=== PATIENT | female | born 1950 | race Caucasian/White ===

== ENCOUNTER 2017-07-24 06:50 | Emergency (ER) | payer MEDICARE ==
[2017-07-24] MEDS ORDERED: ONDANSETRON ODT 4 MG PO ONE (07:30)
[2017-07-24] MEDS ORDERED: MORPHINE SULFATE 4 MG/ML, 1ML IVPush PRN (07:30)
[2017-07-24] MEDS ORDERED: SODIUM CHLORIDE FLUSH 10ML SYR IVF ONE (07:30)
[2017-07-24] MEDS ORDERED: ASPIRIN 81 MG TABLET CHEW PO ONE (07:30)
[2017-07-24] MEDS ORDERED: MORPHINE SULFATE 4 MG/ML, 1ML ONE (07:38)
[2017-07-24] MEDS ORDERED: ONDANSETRON ODT 4 MG ONE (07:38)
[2017-07-24] MEDS ORDERED: ASPIRIN 81 MG TABLET CHEW ONE (07:38)
[2017-07-24 07:47] LABS: ALBUMIN 4.5 g/dL (3.4-5.0); ANION GAP 11 mmol/L (5-15); CALCIUM 9.1 mg/dL (8.5-10.1); CHLORIDE 108 mmol/L (98-107); CREATININE 0.77 mg/dL (0.55-1.02)
[2017-07-24 07:51] LABS: TROPONIN I < 0.015 ng/mL (0.000-0.045)
[2017-07-24 08:02] LABS: BASOPHILS # (AUTO) 0.04 x10^3/uL (0-0.1); BASOPHILS % (AUTO) 1 % (0-1); EOSINOPHILS # (AUTO) 0.08 x10^3/uL (0-0.4); EOSINOPHILS % (AUTO) 2 % (1-7); LYMPHOCYTES % (AUTO) 39 % (22-44); MD NO; MEAN CORPUSCULAR HEMOGLOBIN 30.8 pg (27.0-34.8); MEAN CORPUSCULAR HGB CONC 34.1 g/dL (32.4-35.8); MEAN CORPUSCULAR VOLUME 90.2 fL (80-100); MEAN PLATELET VOLUME 7.8 fL (7.4-10.4); MONOCYTES # (AUTO) 0.51 x10^3/uL (0.2-0.8); MONOCYTES % (AUTO) 9 % (2-9); NEUTROPHILS # (AUTO) 2.82 x10^3/uL (1.8-6.8); NEUTROPHILS % (AUTO) 50 % (42-75); PLATELET COUNT 311 x10^3/uL (130-400); RED BLOOD COUNT 4.69 x10^6/uL (3.82-5.3); RED CELL DISTRIBUTION WIDTH 12.8 % (9.6-15.2)
[2017-07-24] MEDS ORDERED: MAALOX/HYOSCYAMINE/LIDOCAINE 45 ML BTL PO ONE (09:00)
[2017-07-24] MEDS ORDERED: MAALOX/HYOSCYAMINE/LIDOCAINE 45 ML BTL ONE (09:01)
[2017-07-24] MEDS ORDERED: OMNIPAQUE 350 MG/ML, 100ML BOTTLE ONE (09:26)
[2017-07-24 11:50] VITALS: BP 135/82
== END 2017-07-24 11:55 | disposition home or self-care (01) ==
LOC: ED 09:20
DX: R10.13 Epigastric pain (principal)
CPT/HCPCS: 36415; 71045; 74177; 80048; 82040; 83880; 84484; 85025; 93005; 93306; 96374; 99285; Q0162; Q9967

== ENCOUNTER → 2017-10-10 | Outpatient (CLI) | payer MEDICARE | END | disposition home or self-care (01) | LOC: RAD 13:49 | PROVIDERS: ATTEND Family Medicine | DX: S09.90XA Unspecified injury of head, initial encounter (principal); G31.89 Other specified degenerative diseases of nervous system; X58.XXXA Exposure to other specified factors, initial encounter; Y93.89 Activity, other specified; Y92.89 Other specified places as the place of occurrence of the external cause; Y99.8 Other external cause status | CPT/HCPCS: 70450 ==

== ENCOUNTER 2018-03-19 08:16 | Inpatient (IN) | payer MEDICARE ==
[~2018-03-19] VITALS: Ht 160 cm; Wt 86.6 kg
--- NOTE | 2018-03-19 08:38 | NUR ---
Intermittent SOB, orthopnea & intra scapular pain x 1wk. Saw PMD for same c/o last wk & felt worse yesterday so decided to come to ER. No CP, feels difficult to take deep breath. EKG done at time of arrival, placed on cardiac, NIbp & SPO2 monitor. Took 3 asa 325mg TAR MAN. Sig other @ BS, has been seen & eval. by ER ODALYS Reilly. Updated & aware of upcoming POC.
[2018-03-19] MEDS ORDERED: CHOL500045 PO (08:49)
[2018-03-19] MEDS ORDERED: DICY20TA3 PO (08:49)
[2018-03-19] MEDS ORDERED: [UNRECOGNIZED DRUG - OTHER] SL (08:49)
[2018-03-19] MEDS ORDERED: DEXL60CA2 PO (08:49)
[2018-03-19] MEDS ORDERED: SUCR1TAB PO (08:49)
[2018-03-19] MEDS ORDERED: B6 PO (08:49)
[2018-03-19] MEDS ORDERED: AMLO10TA8 PO (08:49)
[2018-03-19] MEDS ORDERED: ROSU5TAB PO (08:49)
[2018-03-19] MEDS ORDERED: CALC-316 PO (08:49)
[2018-03-19] MEDS ORDERED: COCO1000 PO (08:49)
[2018-03-19] MEDS ORDERED: GARL600T PO (08:49)
[2018-03-19 08:58] LABS: BASOPHILS # (AUTO) 0.02 x10^3/uL (0-0.1); BASOPHILS % (AUTO) 0 % (0-1); EOSINOPHILS % (AUTO) 2 % (1-7); LYMPHOCYTES # (AUTO) 1.99 x10^3/uL (1-3.4); LYMPHOCYTES % (AUTO) 32 % (22-44); MD NO; MEAN CORPUSCULAR HEMOGLOBIN 30.3 pg (27.0-34.8); MEAN CORPUSCULAR HGB CONC 33.1 g/dL (32.4-35.8); MEAN CORPUSCULAR VOLUME 91.6 fL (80-100); MEAN PLATELET VOLUME 6.9 fL (7.4-10.4); MONOCYTES # (AUTO) 0.42 x10^3/uL (0.2-0.8); MONOCYTES % (AUTO) 7 % (2-9); NEUTROPHILS # (AUTO) 3.62 x10^3/uL (1.8-6.8); NEUTROPHILS % (AUTO) 59 % (42-75); PLATELET COUNT 362 x10^3/uL (130-400); RED BLOOD COUNT 4.66 x10^6/uL (3.82-5.3); RED CELL DISTRIBUTION WIDTH 12.9 % (9.6-15.2)
[2018-03-19] MEDS ORDERED: ASPIRIN 81 MG TABLET CHEW PO ONE (09:00)
[2018-03-19] MEDS ORDERED: SODIUM CHLORIDE FLUSH 10ML SYR IVF ONE (09:00)
[2018-03-19] MEDS ORDERED: NITROGLYCERIN SINGLE TAB 0.4 MG SL PRN (09:00)
[2018-03-19 09:06] LABS: ALANINE AMINOTRANSFERASE 20 U/L (12-78); ALBUMIN 4.1 g/dL (3.4-5.0); ANION GAP 7 mmol/L (5-15); CALCIUM 9.6 mg/dL (8.5-10.1); CHLORIDE 110 mmol/L (98-107); CREATININE 0.78 mg/dL (0.55-1.02)
[2018-03-19 09:11] LABS: ALKALINE PHOSPHATASE 149 U/L (45-117); BILIRUBIN,TOTAL 0.2 mg/dL (0.2-1.0); TOTAL PROTEIN 7.5 g/dL (6.4-8.2); TROPONIN I < 0.015 ng/mL (0.000-0.045)
--- NOTE | 2018-03-19 09:38 | NUR ---
Patient is resting comfortably in bed. Mild SOB, denies CP. Vital Signs within normal limits. TBADM. Pt aware of POC.
[2018-03-19 09:44] LABS: FREE T4 (FREE THYROXINE) 1.1 ng/dL (0.76-1.46); THYROID STIMULATING HORMONE 0.751 mIU/L (0.358-3.740)
--- NOTE | 2018-03-19 10:27 | NUR ---
Delay in tele bed assignment due to lack of beds. Pt updated about delay, meal tray ordered.
--- NOTE | 2018-03-19 11:08 | NUR ---
Meal tray 100% eaten, pt resting comfortably, VSS.
--- NOTE | 2018-03-19 12:08 | NUR ---
Still waiting on tele bed. Dr. Dias @ BS.
[2018-03-19] MEDS ORDERED: DICYCLOMINE 20 MG TABLET PO PRN (12:30)
[2018-03-19] MEDS ORDERED: OMEPRAZOLE 20 MG CAPSULE.DR PO PRN (12:30)
[2018-03-19] MEDS ORDERED: hydrALAzine 20 MG/ML, 1ML IVPush PRN (12:30)
--- NOTE | 2018-03-19 12:46 | NUR ---
TASK RN: PT SITTING UP IN GURNEY, AWAKE/ALERT. NAD NOTED. PT UPDATED TO POC (AWAITING BED ASSIGNMENT FOR TRANSFER) AND DEMONSTRATES UNDERSTANDING. PT DENIES NEEDS OR NEED FOR PAIN MEDICATIONS.
--- NOTE | 2018-03-19 12:51 | NUR ---
TASK RN: REPORT TO RENE MARK ON FLOOR. PT PREPARED FOR TRANSPORT
[2018-03-19 13:09] VITALS: BP 124/80
[2018-03-19 15:39] LABS: TROPONIN I < 0.015 ng/mL (0.000-0.045)
[2018-03-19] MEDS ORDERED: APAP/CODEINE 300/30MG TABLET PO PRN (16:30)
[2018-03-19 17:10] VITALS: BP 104/69
[2018-03-19 17:11] VITALS: BP 113/65
[2018-03-19 17:12] VITALS: BP 129/74
[2018-03-19] MEDS: CALCIUM/VITAMIN D3 250-125 TABLET PO SCH (17:18)
[2018-03-19] MEDS: ENOXAPARIN 40 MG/0.4 ML SQ SCH (17:18)
[2018-03-19] MEDS: METOPROLOL TARTRATE 25 MG TABLET PO SCH (17:19)
[2018-03-19 20:00] VITALS: BP 118/70
[2018-03-19] MEDS: OMEPRAZOLE 20 MG CAPSULE.DR PO SCH (20:33)
[2018-03-19] MEDS: ATORVASTATIN 10 MG TABLET PO SCH (20:34)
[2018-03-19 23:11] LABS: TROPONIN I < 0.015 ng/mL (0.000-0.045)
[2018-03-19] MEDS: ACETAMINOPHEN 325 MG TABLET PO PRN (23:28)
[2018-03-20 01:54] VITALS: BP 122/72
[2018-03-20] MEDS: ASPIRIN 81 MG TABLET EC PO SCH (06:08)
[2018-03-20] MEDS: OMEPRAZOLE 20 MG CAPSULE.DR PO SCH ×2 (06:09→20:40)
[2018-03-20 07:09] LABS: CHLORIDE 109 mmol/L (98-107)
[2018-03-20 07:24] LABS: ALANINE AMINOTRANSFERASE 21 U/L (12-78); ALKALINE PHOSPHATASE 145 U/L (45-117); ANION GAP 10 mmol/L (5-15); BILIRUBIN,TOTAL 0.4 mg/dL (0.2-1.0); CALCIUM 9.9 mg/dL (8.5-10.1); CHOL/HDL RATIO 2.6; CHOLESTEROL, TOTAL 176 mg/dL (140-239); CREATININE 0.79 mg/dL (0.55-1.02); HDL CHOL % 39 % (28-40); HDL CHOLESTEROL (DIRECT) 69 mg/dL (40-60); LDL CHOLESTEROL,CALCULATED 64 mg/dL (54-169); LDL/HDL RATIO 0.9 (0.5-3.0); TOTAL PROTEIN 7.4 g/dL (6.4-8.2); TRIGLYCERIDES 215 mg/dL (50-200); VLDL CHOLESTEROL 43 mg/dL (0-25)
[2018-03-20 07:28] VITALS: BP 136/77
[2018-03-20] MEDS: METOPROLOL TARTRATE 25 MG TABLET PO SCH ×2 (08:00→17:19)
[2018-03-20] MEDS: ONDANSETRON 2MG/ML, 2ML IVPush PRN (11:23)
[2018-03-20] MEDS: ACETAMINOPHEN 325 MG TABLET PO PRN (11:24)
[2018-03-20] MEDS: CALCIUM/VITAMIN D3 250-125 TABLET PO SCH (11:24)
[2018-03-20] MEDS: POTASSIUM CHLORIDE 20 MEQ TAB.ER.PRT PO SCH (11:24)
[2018-03-20] MEDS: CHOLECALCIFEROL 5,000u TAB PO SCH (11:24)
[2018-03-20 14:00] VITALS: BP 99/63
[2018-03-20 17:17] VITALS: BP 106/55
[2018-03-20] MEDS: ENOXAPARIN 40 MG/0.4 ML SQ SCH (17:19)
[2018-03-20] MEDS: FUROSEMIDE 20 MG/2 ML IV SCH (17:19)
[2018-03-20 18:50] VITALS: BP 128/77
[2018-03-20] MEDS: ATORVASTATIN 10 MG TABLET PO SCH (20:40)
[2018-03-21 00:45] VITALS: BP 96/55
[2018-03-21 05:39] LABS: ANION GAP 7 mmol/L (5-15); CALCIUM 9.3 mg/dL (8.5-10.1); CHLORIDE 107 mmol/L (98-107)
[2018-03-21 05:42] LABS: CREATININE 0.86 mg/dL (0.55-1.02)
[2018-03-21 05:48] VITALS: BP 99/64
[2018-03-21] MEDS: ASPIRIN 81 MG TABLET EC PO SCH (05:50)
[2018-03-21] MEDS: METOPROLOL TARTRATE 25 MG TABLET PO SCH (05:50)
[2018-03-21] MEDS: OMEPRAZOLE 20 MG CAPSULE.DR PO SCH (05:50)
[2018-03-21 07:35] VITALS: BP 115/61
[2018-03-21] MEDS: POTASSIUM CHLORIDE 20 MEQ TAB.ER.PRT PO SCH (07:37)
[2018-03-21] MEDS: CALCIUM/VITAMIN D3 250-125 TABLET PO SCH (07:38)
[2018-03-21] MEDS: CHOLECALCIFEROL 5,000u TAB PO SCH (07:38)
[2018-03-21] MEDS: FUROSEMIDE 20 MG/2 ML IV SCH (07:38)
[2018-03-21] MEDS ORDERED: REGADENOSON 0.4 MG/5 ML SYRINGE ONE (07:41)
[2018-03-21] MEDS: ACETAMINOPHEN 325 MG TABLET PO PRN (11:15)
[2018-03-21] MEDS: ONDANSETRON 2MG/ML, 2ML IVPush PRN (11:15)
[2018-03-21 14:10] VITALS: BP 118/76
[2018-03-21] MEDS ORDERED: FURO40TA6 PO (15:18)
[2018-03-21] MEDS ORDERED: POTA20TA14 PO (15:18)
[2018-03-21] MEDS ORDERED: OMEP-110 PO (15:18)
[2018-03-21] MEDS ORDERED: METO25TA35 PO (15:18)
[2018-03-21] MEDS ORDERED: ASPI81TA45 PO (15:18)
== END 2018-03-21 16:25 | disposition home or self-care (01) | DRG 291 ==
LOC: ED 09:27 → EDIP 09:28 → ED 09:31 → 5SO 13:05 → DCLOUNGE 03-21 16:10
PROVIDERS: ADMIT Hospitalist; ATTEND Internal Medicine
DX: I11.0 Hypertensive heart disease with heart failure (principal); I50.31 Acute diastolic (congestive) heart failure; Z88.8 Allergy status to other drugs, medicaments and biological substances; E66.9 Obesity, unspecified; Z68.33 Body mass index [BMI] 33.0-33.9, adult; E78.00 Pure hypercholesterolemia, unspecified; E78.5 Hyperlipidemia, unspecified; I25.10 Atherosclerotic heart disease of native coronary artery without angina pectoris; K21.9 Gastro-esophageal reflux disease without esophagitis; Z90.49 Acquired absence of other specified parts of digestive tract; Z90.710 Acquired absence of both cervix and uterus; R07.89 Other chest pain
CPT/HCPCS: 36415; 71045; 78452; 80048; 80053; 80061; 82306; 83690; 83735; 83880; 84100; 84439; 84443; 84484; 85025; 85379; 93005; 93017; 93306; G0378; J1650; J2405; J2785; A9502; C9898; J1940

== ENCOUNTER 2018-12-16 10:12 | Emergency (ER) | payer MEDICARE ==
[~2018-12-16] VITALS: Ht 160 cm; Wt 72.0 kg
[~2018-12-16 10:12] MED LIST: AMLO10TA8 PO; ASPI81TA45 PO; B6 PO; CALC-316 PO; CHOL500045 PO; COCO1000 PO; DEXL60CA2 PO; DICY20TA3 PO; FURO40TA6 PO; GARL600T PO; METO25TA35 PO; OMEP-110 PO; POTA20TA14 PO; ROSU5TAB PO; SUCR1TAB PO; [UNRECOGNIZED DRUG - OTHER] SL
--- NOTE | 2018-12-16 10:29 | NUR ---
PT PRESENTED TO ED D/T "MY HEART RACING WOKE ME UP FROM SLEEP." PT ALSO HAS COMPLAINTS OF HYPERTENSION. PT STATED TOOK PRESCRIBED METOPROLOL 25MG THIS AM AND DID NOT GO DOWN. PTS CURRENT BP 163/76. Addendum: 12/16/18 at 1033 by YUSEF PT PRESENTED TO ED D/T "MY HEART RACING WOKE ME UP FROM SLEEP." PT ALSO HAS COMPLAINTS OF HYPERTENSION. PT STATED TOOK PRESCRIBED METOPROLOL 12.5MG THIS AM AND DID NOT GO DOWN. PTS CURRENT BP 163/76.
[2018-12-16] MEDS ORDERED: ATOR-2 PO (10:33)
[2018-12-16] MEDS ORDERED: METO25TA35 PO (10:33)
[2018-12-16] MEDS ORDERED: AZIT250T PO (10:34)
--- NOTE | 2018-12-16 10:36 | NUR ---
PT STATED TOOK A TOTAL OF 25MG OF METOPROLOL THIS AM. PRESCRIPTION STATES TO TAKE HALF A TAB (12.5MG) BID. RN NOTICED BRADYCARDIA [id number]. RN TO INFORM .
--- NOTE | 2018-12-16 10:39 | NUR ---
MD ABURTO INFORMED.
--- NOTE | 2018-12-16 11:11 | NUR ---
ERMD AT BEDSIDE EVALUATING PT.
--- NOTE | 2018-12-16 11:27 | NUR ---
PT NEEDING TO USE THE RESTROOM. RN UNHOOKED PT FROM MONITORING. PT AMBULATED TO RESTROOM WITH A STEADY GAIT.
--- NOTE | 2018-12-16 11:30 | NUR ---
TECH STUDENTS AT BEDSIDE OBTAINING AN EKG.
[2018-12-16 11:56] VITALS: BP 144/87
--- NOTE | 2018-12-16 11:56 | NUR ---
PT LYING ON GURNEY WATCHING TV. NO NEEDS AT THIS TIME. RN TO CONTINUE TO MONITOR.
[2018-12-16 12:06] LABS: BASOPHILS # (AUTO) 0.04 x10^3/uL (0-0.1); BASOPHILS % (AUTO) 1 % (0-1); EOSINOPHILS % (AUTO) 1 % (1-7); LYMPHOCYTES # (AUTO) 2.37 x10^3/uL (1-3.4); LYMPHOCYTES % (AUTO) 31 % (22-44); MD NO; MEAN CORPUSCULAR HEMOGLOBIN 32.1 pg (27.0-34.8); MEAN CORPUSCULAR HGB CONC 33.7 g/dL (32.4-35.8); MEAN CORPUSCULAR VOLUME 95.3 fL (80-100); MEAN PLATELET VOLUME 7.8 fL (7.4-10.4); MONOCYTES # (AUTO) 0.52 x10^3/uL (0.2-0.8); MONOCYTES % (AUTO) 7 % (2-9); NEUTROPHILS % (AUTO) 60 % (42-75); PLATELET COUNT 270 x10^3/uL (130-400); RED BLOOD COUNT 4.67 x10^6/uL (3.82-5.3); RED CELL DISTRIBUTION WIDTH 12.6 % (9.6-15.2)
[2018-12-16 12:13] LABS: ALANINE AMINOTRANSFERASE 28 U/L (12-78); ALBUMIN 4.4 g/dL (3.4-5.0); ANION GAP 6 mmol/L (5-15); CALCIUM 8.9 mg/dL (8.5-10.1); CHLORIDE 107 mmol/L (98-107); CREATININE 0.86 mg/dL (0.55-1.02)
--- NOTE | 2018-12-16 12:41 | NUR ---
PT AMBULATED TO RESTROOM WITH A STEADY GAIT. RN HOOKED PT BACK UP TO MONITORING.
[2018-12-16 12:53] LABS: ALKALINE PHOSPHATASE 142 U/L (45-117); BILIRUBIN,TOTAL 0.5 mg/dL (0.2-1.0); TOTAL PROTEIN 7.7 g/dL (6.4-8.2); TROPONIN I < 0.015 ng/mL (0.000-0.045)
--- NOTE | 2018-12-16 12:54 | NUR ---
REPORT TO RENE ZELAYA LUNCH RELIEF.
== END 2018-12-16 13:30 | disposition home or self-care (01) ==
LOC: ED 10:49
DX: R00.2 Palpitations (principal); I10 Essential (primary) hypertension; E78.00 Pure hypercholesterolemia, unspecified
CPT/HCPCS: 36415; 71045; 80053; 84484; 85025; 93005; 99284

== ENCOUNTER 2019-02-18 11:48 | Outpatient (CLI) | payer MEDICARE ==
[~2019-02-18 11:48] MED LIST changes: +ATOR-2 PO; +AZIT250T PO
== END 2019-02-18 23:59 | disposition home or self-care (01) ==
LOC: CFH 11:48
PROVIDERS: ATTEND Orthopaedic Surgery
DX: S42.251D Displaced fracture of greater tuberosity of right humerus, subsequent encounter for fracture with routine healing (principal); M19.011 Primary osteoarthritis, right shoulder; M62.511 Muscle wasting and atrophy, not elsewhere classified, right shoulder; M25.711 Osteophyte, right shoulder; X58.XXXD Exposure to other specified factors, subsequent encounter

== ENCOUNTER → 2019-03-18 | Outpatient (CLI) | payer MEDICARE | END | disposition home or self-care (01) | LOC: RAD 10:12 | PROVIDERS: ATTEND Family Medicine | DX: R05 Cough (principal); N95.8 Other specified menopausal and perimenopausal disorders; I51.7 Cardiomegaly | CPT/HCPCS: 71046 ==

== ENCOUNTER 2019-07-21 07:37 | Observation (INO) | payer MEDICARE ==
[~2019-07-21] VITALS: Ht 160 cm; Wt 72.6 kg
[2019-07-21] MEDS ORDERED: ONDANSETRON 2MG/ML, 2ML IVPush ONE (08:00)
[2019-07-21] MEDS ORDERED: SODIUM CHLORIDE FLUSH 10ML SYR IVF ONE (08:00)
[2019-07-21] MEDS ORDERED: ASPIRIN 81 MG TABLET CHEW PO ONE (08:00)
[2019-07-21] MEDS ORDERED: MORPHINE SULFATE 4 MG/ML, 1ML IVPush PRN (08:00)
[2019-07-21] MEDS ORDERED: MORPHINE SULFATE 4 MG/ML, 1ML ONE (08:01)
[2019-07-21] MEDS ORDERED: ONDANSETRON 2MG/ML, 2ML ONE (08:02)
[2019-07-21] MEDS ORDERED: ASPIRIN 81 MG TABLET CHEW ONE (08:02)
--- NOTE | 2019-07-21 08:24 | NUR ---
PT WITH C/O SOB AND GEN WEAKNESS, STATES SHE HAS A LOW HR SHE WAS TOLD BY HER PCP SHE NEEDED A PM PLACED. 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 PT WITH C/O CHEST TIGHTNESS ON AND OFF. PT TO BP, CONT PULSE OX, CARD MONITOR.
[2019-07-21 08:33] LABS: BASOPHILS # (AUTO) 0.03 x10^3/uL (0-0.1); BASOPHILS % (AUTO) 1 % (0-1); EOSINOPHILS # (AUTO) 0.09 x10^3/uL (0-0.4); EOSINOPHILS % (AUTO) 2 % (1-7); LYMPHOCYTES # (AUTO) 2.19 x10^3/uL (1-3.4); LYMPHOCYTES % (AUTO) 36 % (22-44); MD NO; MEAN CORPUSCULAR HEMOGLOBIN 31.3 pg (27.0-34.8); MEAN CORPUSCULAR HGB CONC 33.3 g/dL (32.4-35.8); MEAN CORPUSCULAR VOLUME 93.9 fL (80-100); MEAN PLATELET VOLUME 7.4 fL (7.4-10.4); MONOCYTES # (AUTO) 0.55 x10^3/uL (0.2-0.8); MONOCYTES % (AUTO) 9 % (2-9); NEUTROPHILS # (AUTO) 3.28 x10^3/uL (1.8-6.8); NEUTROPHILS % (AUTO) 53 % (42-75); PLATELET COUNT 277 x10^3/uL (130-400); RED BLOOD COUNT 4.44 x10^6/uL (3.82-5.3); RED CELL DISTRIBUTION WIDTH 14.5 % (9.6-15.2)
[2019-07-21 08:34] LABS: ALANINE AMINOTRANSFERASE 19 U/L (12-78); ALBUMIN 3.7 g/dL (3.4-5.0); ANION GAP 8 mmol/L (5-15); CALCIUM 8.7 mg/dL (8.5-10.1); CHLORIDE 110 mmol/L (98-107); CREATININE 0.85 mg/dL (0.55-1.02)
[2019-07-21 08:38] LABS: ALKALINE PHOSPHATASE 146 U/L (45-117); BILIRUBIN,TOTAL 0.4 mg/dL (0.2-1.0); TOTAL PROTEIN 7.1 g/dL (6.4-8.2); TROPONIN I < 0.015 ng/mL (0.000-0.045)
--- NOTE | 2019-07-21 08:56 | NUR ---
PT TO IMAGING AT THIS TIME
--- NOTE | 2019-07-21 10:09 | NUR ---
REPORT GIVEN TO NISREEN LÓPEZ
[2019-07-21] MEDS ORDERED: morphine SULFATE 10 MG/ML, 1ML IVPush PRN (11:00)
[2019-07-21] MEDS ORDERED: DOCUSATE 100 MG CAPSULE PO PRN (11:00)
[2019-07-21] MEDS ORDERED: ONDANSETRON ODT 4 MG PO PRN (11:00)
[2019-07-21] MEDS ORDERED: NITROGLYCERIN 0.4 MG BOTTLE (25 TABS) SL PRN (11:00)
[2019-07-21] MEDS ORDERED: POLYETHYLENE GLYCOL 17 GM PACKET PO PRN (11:00)
[2019-07-21] MEDS ORDERED: ONDANSETRON 2MG/ML, 2ML IVPush PRN (11:00)
[2019-07-21 11:31] VITALS: BP 161/78
[2019-07-21] MEDS: ACETAMINOPHEN 325 MG TABLET PO PRN (12:07)
[2019-07-21] MEDS: ENOXAPARIN 40 MG/0.4 ML SQ SCH (12:07)
[2019-07-21 12:10] LABS: MICROSCOPIC NOT IND
[2019-07-21] MEDS ORDERED: DIPH25CA61 PO (12:14)
[2019-07-21] MEDS: LISINOPRIL 20 MG TABLET PO SCH (12:51)
[2019-07-21 13:28] VITALS: BP 133/81
[2019-07-21] MEDS ORDERED: PROMETHAZINE 25 MG/ML, 1ML IM PRN ×2 (16:00→18:30)
[2019-07-21 20:00] VITALS: BP 155/77
[2019-07-21] MEDS ORDERED: ATORVASTATIN 40 MG TABLET PO SCH (21:00)
[2019-07-21] MEDS ORDERED: MELATONIN 5 MG TABLET PO ONE (21:30)
[2019-07-22] MEDS: ACETAMINOPHEN 325 MG TABLET PO PRN ×2 (03:01→13:08)
[2019-07-22 03:05] VITALS: BP 109/67
[2019-07-22 05:47] LABS: BASOPHILS # (AUTO) 0.03 x10^3/uL (0-0.1); BASOPHILS % (AUTO) 0 % (0-1); EOSINOPHILS # (AUTO) 0.06 x10^3/uL (0-0.4); EOSINOPHILS % (AUTO) 1 % (1-7); LYMPHOCYTES # (AUTO) 2.13 x10^3/uL (1-3.4); LYMPHOCYTES % (AUTO) 34 % (22-44); MD NO; MEAN CORPUSCULAR HEMOGLOBIN 31.3 pg (27.0-34.8); MEAN CORPUSCULAR HGB CONC 33.6 g/dL (32.4-35.8); MEAN CORPUSCULAR VOLUME 93.1 fL (80-100); MEAN PLATELET VOLUME 7.6 fL (7.4-10.4); MONOCYTES % (AUTO) 8 % (2-9); NEUTROPHILS # (AUTO) 3.62 x10^3/uL (1.8-6.8); NEUTROPHILS % (AUTO) 57 % (42-75); PLATELET COUNT 254 x10^3/uL (130-400); RED BLOOD COUNT 4.23 x10^6/uL (3.82-5.3); RED CELL DISTRIBUTION WIDTH 14.2 % (9.6-15.2)
[2019-07-22 05:51] LABS: ALBUMIN 3.5 g/dL (3.4-5.0); ANION GAP 9 mmol/L (5-15); CALCIUM 8.9 mg/dL (8.5-10.1); CHLORIDE 107 mmol/L (98-107)
[2019-07-22 05:56] LABS: ALANINE AMINOTRANSFERASE 19 U/L (12-78); ALKALINE PHOSPHATASE 129 U/L (45-117); BILIRUBIN,TOTAL 0.7 mg/dL (0.2-1.0); CHOL/HDL RATIO 2.6; CHOLESTEROL, TOTAL 168 mg/dL (140-239); CREATININE 0.74 mg/dL (0.55-1.02); HDL CHOL % 39 % (28-40); HDL CHOLESTEROL (DIRECT) 65 mg/dL (40-60); LDL CHOLESTEROL,CALCULATED 57 mg/dL (54-169); LDL/HDL RATIO 0.9 (0.5-3.0); TOTAL PROTEIN 6.6 g/dL (6.4-8.2); TRIGLYCERIDES 229 mg/dL (50-200); TROPONIN I < 0.015 ng/mL (0.000-0.045); VLDL CHOLESTEROL 46 mg/dL (0-25)
[2019-07-22] MEDS ORDERED: ASPIRIN 81 MG TABLET EC PO SCH (06:00)
[2019-07-22 06:58] VITALS: BP 117/78
[2019-07-22] MEDS: LISINOPRIL 20 MG TABLET PO SCH (07:44)
[2019-07-22] MEDS ORDERED: REGADENOSON 0.4 MG/5 ML SYRINGE ONE (08:20)
[2019-07-22] MEDS: ENOXAPARIN 40 MG/0.4 ML SQ SCH (11:56)
[2019-07-22 12:34] VITALS: BP 118/81
[2019-07-22] MEDS ORDERED: OMNIPAQUE 350 MG/ML, 75ML BOTTLE ONE (15:43)
[2019-07-22] MEDS ORDERED: LISI-170 PO (16:12)
== END 2019-07-22 16:50 | disposition home or self-care (01) ==
LOC: ED 08:39 → EDIP 09:35 → INTOOBSV 09:35 → 5SO 10:48 → DCLOUNGE 07-22 16:44
PROVIDERS: ADMIT Family Medicine; ATTEND Family Medicine
DX: R00.1 Bradycardia, unspecified (principal); R07.2 Precordial pain; R07.89 Other chest pain; R06.00 Dyspnea, unspecified; R51 Headache; R32 Unspecified urinary incontinence; I11.0 Hypertensive heart disease with heart failure; I50.9 Heart failure, unspecified; E78.5 Hyperlipidemia, unspecified; K21.9 Gastro-esophageal reflux disease without esophagitis; F10.10 Alcohol abuse, uncomplicated; E66.9 Obesity, unspecified; I25.10 Atherosclerotic heart disease of native coronary artery without angina pectoris; E78.00 Pure hypercholesterolemia, unspecified; Z79.899 Other long term (current) drug therapy
CPT/HCPCS: 36415; 70450; 71045; 71275; 78452; 80053; 80061; 81003; 83036; 83880; 84443; 84484; 85025; 85379; 93005; 93017; 93306; 96372; 96374; 96375; 96376; 99285; A9502; G0378; J1650; J2270; J2405; J2550; J2785; Q9967

== ENCOUNTER 2020-02-03 07:32 | Outpatient (CLI) | payer MEDICARE ==
[~2020-02-03 07:32] MED LIST changes: +AMLO-211 PO; -AMLO10TA8 PO; +DIPH25CA61 PO; +LISI-170 PO
[2020-02-03 09:27] LABS: MEAN CORPUSCULAR HEMOGLOBIN 31.4 pg (27.0-34.8); MEAN CORPUSCULAR HGB CONC 34.3 g/dL (32.4-35.8); MEAN PLATELET VOLUME 7.8 fL (7.4-10.4); PLATELET COUNT 274 x10^3/uL (130-400); RED BLOOD COUNT 4.68 x10^6/uL (3.82-5.3); RED CELL DISTRIBUTION WIDTH 12.6 % (9.6-15.2)
[2020-02-03 09:34] LABS: ALANINE AMINOTRANSFERASE 27 U/L (12-78); ALBUMIN 4.3 g/dL (3.4-5.0); ANION GAP 8 mmol/L (5-15); CALCIUM 9.7 mg/dL (8.5-10.1); CHLORIDE 112 mmol/L (98-107)
[2020-02-03 09:36] LABS: ALKALINE PHOSPHATASE 155 U/L (45-117); BILIRUBIN,TOTAL 0.4 mg/dL (0.2-1.0); TOTAL PROTEIN 7.8 g/dL (6.4-8.2)
[2020-02-03 10:56] LABS: MD YES
[2020-02-03 11:08] LABS: BASOS#(MANUAL) 0.06 x10^3/uL (0-0.1); BASOS% (MANUAL) 1 % (0-1); LYMPH#(MANUAL) 3.17 x10^3/uL (1-3.4); LYMPHS% (MANUAL) 52 % (22-44); MONOS#(MANUAL) 0.37 x10^3/uL (0.3-2.7); MONOS% (MANUAL) 6 % (2-9); REACTIVE LYMPHS # (MANUAL) 0.12 x10^3/uL (0-0); REACTIVE LYMPHS % (MANUAL) 2 % (0-0); SEG#(MANUAL) 2.38 x10^3/uL (1.8-6.8); SEGS% (MANUAL) 39 % (42-75)
[2020-02-03 11:09] LABS: <PLATELET ESTIMATE> ADEQUATE; <PLT MORPHOLOGY> NORMAL PLT MORPH; <RBC MORPHOLOGY> NORMAL
== END 2020-02-03 23:59 | disposition home or self-care (01) ==
LOC: RAD 07:32
PROVIDERS: ATTEND Physician Assistant
DX: R06.02 Shortness of breath (principal); R10.13 Epigastric pain; R53.83 Other fatigue; R11.0 Nausea; Z90.49 Acquired absence of other specified parts of digestive tract
CPT/HCPCS: 36415; 71046; 76700; 80053; 83690; 85025

== ENCOUNTER 2020-02-03 07:36 | Outpatient (CLI) | payer MEDICARE | END 2020-02-03 23:59 | disposition home or self-care (01) | LOC: LAB 07:36 | PROVIDERS: ATTEND Family Medicine | DX: Z02.9 Encounter for administrative examinations, unspecified (principal) ==

== ENCOUNTER 2020-07-18 09:17 | Emergency (ER) | payer MEDICARE ==
[~2020-07-18] VITALS: Ht 160 cm; Wt 66.7 kg
[~2020-07-18 09:17] MED LIST changes: -DICY20TA3 PO; +DICY20TA4 PO
[2020-07-18] MEDS ORDERED: ONDANSETRON 2MG/ML, 2ML IVPush ONE (10:00)
[2020-07-18] MEDS ORDERED: SODIUM CHLORIDE 0.9% 1,000ML IVBOLUS ONE (10:00)
[2020-07-18] MEDS ORDERED: SODIUM CHLORIDE FLUSH 10ML SYR IVF ONE (10:00)
--- NOTE | 2020-07-18 10:08 | NUR ---
PT HAS CO NAUSEA/VOMITING AND MARKHAM X1 WEEK. ABDOMINAL PAIN FROM VOMITING. PT TO BED WITH ASSIST OF CANE. POSTIONED TO COMFORT. PT ATTACHED TO MONITORS. BARTOLOME. JENNI. DR. DELANEY EVALUATED
[2020-07-18 10:39] LABS: MICROSCOPIC NOT IND
[2020-07-18] MEDS ORDERED: ONDANSETRON 2MG/ML, 2ML ONE (10:43)
--- NOTE | 2020-07-18 10:47 | NUR ---
pt medicated per emar. vss. hayesn.
[2020-07-18 10:49] LABS: BASOPHILS % (AUTO) 0 % (0-1); EOSINOPHILS % (AUTO) 1 % (1-7); LYMPHOCYTES % (AUTO) 38 % (22-44); MEAN CORPUSCULAR HEMOGLOBIN 31.8 pg (27.0-34.8); MEAN CORPUSCULAR HGB CONC 35.6 g/dL (32.4-35.8); MEAN PLATELET VOLUME 7.2 fL (7.4-10.4); MONOCYTES % (AUTO) 10 % (2-9); NEUTROPHILS % (AUTO) 50 % (42-75); PLATELET COUNT 272 x10^3/uL (130-400); RED BLOOD COUNT 4.39 x10^6/uL (3.82-5.3); RED CELL DISTRIBUTION WIDTH 12.5 % (9.6-15.2)
[2020-07-18 10:50] LABS: ALBUMIN 3.9 g/dL (3.4-5.0); ANION GAP 9 mmol/L (5-15); CALCIUM 9.1 mg/dL (8.5-10.1); CHLORIDE 98 mmol/L (98-107); MD NO
[2020-07-18 10:53] LABS: ALANINE AMINOTRANSFERASE 25 U/L (12-78); ALKALINE PHOSPHATASE 160 U/L (45-117); BILIRUBIN,TOTAL 0.5 mg/dL (0.2-1.0); CREATININE 0.74 mg/dL (0.55-1.02); TOTAL PROTEIN 7.2 g/dL (6.4-8.2)
[2020-07-18 11:40] VITALS: BP 127/72
== END 2020-07-18 11:48 | disposition home or self-care (01) ==
LOC: ED 10:10
DX: R11.2 Nausea with vomiting, unspecified (principal); R51.9 Headache, unspecified; R10.9 Unspecified abdominal pain; E87.1 Hypo-osmolality and hyponatremia; I10 Essential (primary) hypertension; E78.00 Pure hypercholesterolemia, unspecified; Z88.5 Allergy status to narcotic agent
CPT/HCPCS: 36415; 80053; 81003; 85025; 96361; 96374; 99283; J2405; J7030

== ENCOUNTER 2020-08-30 10:12 | Emergency (ER) | payer MEDICARE ==
[~2020-08-30] VITALS: Ht 160 cm; Wt 67.6 kg
--- NOTE | 2020-08-30 10:39 | NUR ---
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
--- NOTE | 2020-08-30 10:50 | NUR ---
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
--- NOTE | 2020-08-30 10:57 | NUR ---
PT AMBULATORY TO ROOM 9 W/ C/O L HAND DEFORMITY AND PAIN AFTER PT TRIPPED AND FELL AND CAUGHT HERSELF ON HER L HAND. HAPPENED AT 0930 TODAY. PT STATES MILD PAIN 4/10 AND AT TIMES NUMBNESS TO AREA. PT RESTING ON LEONARDO. JENNI. CALL LIGHT IN REACH.
--- NOTE | 2020-08-30 11:05 | NUR ---
VALERIA LEVIN AT BEDSIDE FOR EVAL.
[2020-08-30] MEDS ORDERED: LIDOCAINE-MPF 1%, 5ML ONE (11:09)
--- NOTE | 2020-08-30 11:13 | NUR ---
PT RESTING ON GURNEY. NADN. MANCUSO.
[2020-08-30] MEDS ORDERED: LIDOCAINE-MPF 1%, 5ML INFIL ONE (11:30)
--- NOTE | 2020-08-30 11:49 | NUR ---
ERP DR. DELANEY AT BEDSIDE FOR EVAL.
[2020-08-30] MEDS ORDERED: NEOSPORIN OINT. PKT 1 PACKET ONE (12:16)
[2020-08-30 12:21] VITALS: BP 126/80
--- NOTE | 2020-08-30 12:22 | NUR ---
PT RESTING ON GURNEY. NADN. MANCUSO.
== END 2020-08-30 12:46 | disposition home or self-care (01) ==
LOC: ED 12:40
DX: S62.617A Displaced fracture of proximal phalanx of left little finger, initial encounter for closed fracture (principal); I10 Essential (primary) hypertension; E78.00 Pure hypercholesterolemia, unspecified; W01.0XXA Fall on same level from slipping, tripping and stumbling without subsequent striking against object, initial encounter; Y93.89 Activity, other specified; Y92.009 Unspecified place in unspecified non-institutional (private) residence as the place of occurrence of the external cause; Y99.8 Other external cause status
CPT/HCPCS: 29125; 99283

== ENCOUNTER 2020-09-14 09:10 | Emergency (ER) | payer MEDICARE ==
[~2020-09-14] VITALS: Ht 160 cm; Wt 63.8 kg
[2020-09-14] MEDS ORDERED: WATER PILL PO (09:41)
[2020-09-14] MEDS ORDERED: ONDANSETRON ODT 4 MG ONE (09:59)
[2020-09-14] MEDS ORDERED: ONDANSETRON ODT 4 MG PO ONE (10:00)
--- NOTE | 2020-09-14 10:01 | NUR ---
PT C/O +NAUSEA W/O VOMITING SINCE 09/11, ALSO PAIN BEHIND LEFT EAR AND DOWN LEFT SIDE OF NECK. PAIN INTERMITANT WHEN SHE IS LAYING DOWN AND TRIES TO REPOSITION HERSELF. PT DENIES NECK PAIN AT THIS TIME. REQUESTING MEDICATION FOR NAUSEA. PT MED NOTED PER PROTOCOL. CALL LIGHT W/I REACH. PROVIDER EVAL PENDING
--- NOTE | 2020-09-14 10:34 | NUR ---
DR ABURTO AT BEDSIDE. PT ASSESSMENT, POC REVIEWED AND QUESTIONS ANSWERED. PT RPTS NAUSEA IMPROVED AFTER ZOFRAN
--- NOTE | 2020-09-14 12:23 | NUR ---
PT TO MRI WITH TECH TRANSPORT
[2020-09-14] MEDS ORDERED: GADOTERATE 7.5 MMOL/15ML SYR ONE (13:11)
--- NOTE | 2020-09-14 13:45 | NUR ---
REPORT FROM RENE GRACIA. PT RESTING IN [facility], MONITORING IN PLACE, NADN AT THIS TIME, [facility].
[2020-09-14 14:45] VITALS: BP 121/62
== END 2020-09-14 14:50 | disposition home or self-care (01) ==
LOC: ED 10:46
DX: H70.002 Acute mastoiditis without complications, left ear (principal); R11.0 Nausea; M54.2 Cervicalgia; I10 Essential (primary) hypertension
CPT/HCPCS: 70543; 99284; A9575; Q0162